=== PATIENT | female | born 2000 | race African-American/Black ===

== ENCOUNTER 2022-03-08 16:18 | Emergency (ER) | payer SELFPAY ==
[~2022-03-08] VITALS: Ht 170.2 cm; Wt 79.0 kg
[2022-03-08 16:38] VITALS: BP 131/83
[2022-03-08] MEDS ORDERED: ACETAMINOPHEN 325MG TABLET PO ONE (16:45)
[2022-03-08 17:27] LABS: CLARITY URINE CLEAR (CLEAR); COLOR URINE YELLOW (YELLOW); KETONES URINE NEGATIVE (NEGATIVE); LEUKOCYTE ESTERASE URINE NEGATIVE (NEGATIVE); NITRITE URINE NEGATIVE (NEGATIVE); OCCULT BLOOD URINE 2+ (NEGATIVE); PROTEIN URINE NEGATIVE (NEGATIVE); SPECIFIC GRAVITY URINE 1.009 (1.005-1.030); UROBILINOGEN URINE 0.2 E.U./dL (0.2-1.0)
== END 2022-03-08 19:26 | disposition home or self-care (01) ==
LOC: ER 16:18
DX: N94.6 Dysmenorrhea, unspecified (principal)
CPT/HCPCS: 81003; 99283